=== PATIENT | male | born 1930 | race Caucasian/White ===

== ENCOUNTER 2019-08-01 18:34 | Inpatient (IN) ==
[2019-08-01] MEDS ORDERED: *HR* FentaNYL (PF) 100 MCG/2 ML VIAL IVP ONE (18:55)
[2019-08-01] MEDS ORDERED: Ondansetron 4 MG/2 ML VIAL IVP ONE (18:55)
[2019-08-01] MEDS ORDERED: 0.9 % Sodium Chloride 1,000 ML IVC SCH (19:00)
[2019-08-01 19:18] LABS: Mean Platelet Volume 12.7 fL (9.4-12.4)
[2019-08-01 19:20] LABS: Hematocrit 39.7 % (37.5-50.1); Immature Platelets 10.5 % (1.1-6.1); Mean Corpuscular HGB Conc 35.3 g/dL (31.6-35.5); Mean Corpuscular Hemoglobin 36.9 pg (28.0-33.3); Mean Corpuscular Volume 104.7 fL (83.0-100.0); Monocytes # 0.2 K/mcL (0.0-1.3); Red Blood Count 3.79 M/mcL (4.19-5.50); Red Cell Distribution Width 17.3 % (11.5-14.5); White Blood Count 9.1 K/mcL (4.3-11.1)
[2019-08-01 19:31] LABS: Platelet Count 49 K/mcL (140-400)
[2019-08-01 19:45] LABS: Calcium 9.2 mg/dL (8.6-10.3); Potassium 6.1 mEq/L (3.5-5.1)
[2019-08-01] MEDS ORDERED: *HR* Dextrose 50 % in Water (Syg) 50 ML SYRINGE IVP ONE (19:46)
[2019-08-01 19:53] LABS: Lymphocytes # 0.4 K/mcL (0.6-4.6); Neutrophils # 8.6 K/mcL (1.6-8.9)
[2019-08-01 19:54] LABS: Platelet Estimate Decreased (Normal)
[2019-08-01] MEDS ORDERED: *HR* Dextrose 50 % in Water (Syg) 50 ML SYRINGE ONE (19:57)
[2019-08-01] MEDS ORDERED: Ondansetron 4 MG/2 ML VIAL IVP PRN (20:53)
[2019-08-01] MEDS ORDERED: Naloxone 0.4 MG/ML INJ IVP PRN (20:53)
[2019-08-01] MEDS ORDERED: Albuterol 2.5 MG/3 ML NEBULIZER IH ONE (20:55)
[2019-08-01] MEDS: 0.9 % Sodium Chloride 1,000 ML IVC SCH (22:01)
[2019-08-01] MEDS ORDERED: Nicotine 21 MG PATCH.TD24 TD PRN (22:51)
[2019-08-02] MEDS ORDERED: *HR* Dextrose 50 % in Water (Syg) 50 ML SYRINGE IVP PRN (00:06)
[2019-08-02] MEDS ORDERED: D5% in Water 1,000 ML IVC PRN (00:06)
[2019-08-02] MEDS ORDERED: Dextrose Gel 15 GM/37.5 ML TUBE PO PRN ×2 (00:06)
[2019-08-02] MEDS: Morphine Sulfate 2 MG/ML SYRINGE IVP PRN ×2 (01:00→02:25)
[2019-08-02] MEDS: 0.9 % Sodium Chloride 1,000 ML IVC SCH (08:17)
[2019-08-02] MEDS ORDERED: D5% in 0.9% NACL 1,000 ML IVC SCH (08:30)
[2019-08-02] MEDS ORDERED: Morphine Sulfate 2 MG/ML SYRINGE IVP PRN (09:12)
[2019-08-02] MEDS ORDERED: *HR* FentaNYL (PF) 100 MCG/2 ML VIAL IVP PRN (10:28)
[2019-08-02] MEDS ORDERED: *HR* LORazepam Oral Conc 2 MG/ML SL PRN ×2 (10:29→14:31)
[2019-08-02] MEDS ORDERED: Haloperidol Oral Conc 10 MG/5 ML UDC PO PRN (14:30)
[2019-08-02 19:37] VITALS: BP 65/31
== END 2019-08-03 01:04 | disposition expired | DRG 951 ==
LOC: 2ANU 18:34 → EMEROOARM 18:34 → 2ANU 20:15 → SUATTDRO 21:26
PROVIDERS: ADMIT Internal Medicine; ATTEND Internal Medicine